=== PATIENT | female | born 1970 | race Caucasian/White ===

== ENCOUNTER 2018-01-14 09:33 | Emergency (ER) | payer OTHER ==
[~2018-01-14] VITALS: Ht 165.1 cm; Wt 72.6 kg
[2018-01-14] MEDS ORDERED: PEPCID20 MG (09:55)
[2018-01-14] MEDS ORDERED: ZOLOFT20 MG/1 ML (09:55)
[2018-01-14] MEDS ORDERED: OMEPRAZOLE20 M1 (09:55)
[2018-01-14] MEDS ORDERED: FOSAMAX70 MG (09:56)
== END 2018-01-14 11:26 | disposition home or self-care (01) ==
LOC: ER 09:33
DX: M54.89 Other dorsalgia (principal); M62.830 Muscle spasm of back

== ENCOUNTER 2020-05-06 11:02 | Emergency (ER) | payer OTHER ==
[~2020-05-06] VITALS: Ht 160 cm; Wt 70.8 kg
[~2020-05-06 11:02] MED LIST: FOSAMAX70 MG; OMEPRAZOLE20 M1; PEPCID20 MG; ZOLOFT20 MG/1 ML
== END 2020-05-06 14:07 | disposition home or self-care (01) ==
LOC: ER 11:02
DX: B34.9 Viral infection, unspecified (principal); Z03.818 Encounter for observation for suspected exposure to other biological agents ruled out; R53.81 Other malaise

== ENCOUNTER 2020-07-18 10:34 | Emergency (ER) | payer OTHER ==
[~2020-07-18] VITALS: Ht 165.1 cm; Wt 72.6 kg
== END 2020-07-18 21:47 | disposition home or self-care (01) ==
LOC: ER 10:34
DX: K52.9 Noninfective gastroenteritis and colitis, unspecified (principal)

== ENCOUNTER 2020-07-21 19:14 | Emergency (ER) | payer OTHER ==
[~2020-07-21] VITALS: Ht 165.1 cm; Wt 73.0 kg
[2020-07-21] MEDS ORDERED: BENTYL10 MG/1 ML (19:21)
[2020-07-21] MEDS ORDERED: DIPHENOXYLATE-1 EACH PO (23:00)
[2020-07-21] MEDS ORDERED: INTESTINEX680 M2 PO (23:00)
[2020-07-21] MEDS ORDERED: MEDROLPACK PO (23:00)
[2020-07-21] MEDS ORDERED: LEVSIN/SL0.125 MG SL (23:00)
[2020-07-21] MEDS ORDERED: PEPCID AC20 MG PO (23:00)
[2020-07-21] MEDS ORDERED: ONDANSETRON ODT4 MG SL (23:00)
== END 2020-07-21 23:47 | disposition home or self-care (01) ==
LOC: ER 19:14
DX: K51.80 Other ulcerative colitis without complications (principal)

== ENCOUNTER 2020-08-05 16:08 | Emergency (ER) | payer OTHER ==
[~2020-08-05] VITALS: Ht 165.1 cm; Wt 70.8 kg
[~2020-08-05 16:08] MED LIST changes: +BENTYL10 MG/1 ML; +DIPHENOXYLATE-1 EACH PO; +INTESTINEX680 M2 PO; +LEVSIN/SL0.125 MG SL; +MEDROLPACK PO; +ONDANSETRON ODT4 MG SL; +PEPCID AC20 MG PO
[2020-08-05] MEDS ORDERED: ABATINEX680 MG (16:18)
== END 2020-08-05 21:36 | disposition home or self-care (01) ==
LOC: ER 16:08
DX: K29.60 Other gastritis without bleeding (principal); N20.0 Calculus of kidney; Z03.818 Encounter for observation for suspected exposure to other biological agents ruled out

== ENCOUNTER 2023-02-10 18:18 | Emergency (ER) | payer OTHER ==
[~2023-02-10] VITALS: Ht 162.6 cm; Wt 74.8 kg
[~2023-02-10 18:18] MED LIST changes: +ABATINEX680 MG
[2023-02-10] MEDS ORDERED: CARAFATE1 GM PO (18:30)
[2023-02-10] MEDS ORDERED: PROBIOTIC1 EAC2 PO (18:31)
[2023-02-10] MEDS ORDERED: OMEPRAZOLE MAGN20 MG PO (18:31)
== END 2023-02-10 21:51 | disposition home or self-care (01) ==
LOC: ER 18:18
DX: B34.9 Viral infection, unspecified (principal); R53.81 Other malaise; Z20.822 Contact with and (suspected) exposure to COVID-19; Z88.6 Allergy status to analgesic agent

== ENCOUNTER 2023-12-30 01:18 | Emergency (ER) | payer OTHER ==
[~2023-12-30] VITALS: Ht 165.1 cm; Wt 72.6 kg
[~2023-12-30 01:18] MED LIST changes: +CARAFATE1 GM PO; +OMEPRAZOLE MAGN20 MG PO; +PROBIOTIC1 EAC2 PO
[2023-12-30] MEDS ORDERED: METOCLOPRAMIDE HCL 5 MG/ML VIAL IM STA (02:01)
[2023-12-30] MEDS ORDERED: MEPERIDINE HCL/PF 50 MG/ML VIAL IM STA (02:04)
[2023-12-30] MEDS ORDERED: PROMETHAZINE HCL 50 MG/ML AMPUL IM STA (02:05)
[2023-12-30 02:40] LABS: HEMATOCRIT 34.7 % (36.0-45.00); MEAN CELL VOLUME 91.3 fL (80.00-100.00); MEAN CORPUSCULAR HEMOGLOBIN 31.5 pg (27.00-32.0); MEAN CORPUSCULAR HGB CONC 34.5 g/dl (32.0-36.0); PLATELET COUNT 294 K/uL (150-450); RED CELL DISTRIBUTION WIDTH 13.8 % (11.5-14.5)
[2023-12-30 03:10] LABS: INR 0.94; PARTIAL THROMBOPLASTIN TIME 26.4 SECONDS (22.0-34.0); PROTHROMBIN TIME 9.9 SECONDS (9.0-11.5)
[2023-12-30 03:13] LABS: ALBUMIN 3.8 gm/dL (3.4-5.0); BILIRUBIN TOTAL 0.28 mg/dL (0.3-1.2); CALCIUM 9.4 mg/dL (8.5-10.1); CREATININE SERUM 0.69 mg/dL (0.55-1.02); GFR 89.34; GLOBULINA 3.8 G/DL (2.4-3.5); POTASSIUM 3.71 mEq/L (3.5-5.1); TOTAL PROTEIN 7.6 gm/dL (6.4-8.2)
== END 2023-12-30 05:41 | disposition home or self-care (01) ==
LOC: ER 01:18
DX: G44.009 Cluster headache syndrome, unspecified, not intractable (principal); Z88.8 Allergy status to other drugs, medicaments and biological substances

== ENCOUNTER 2024-01-07 12:44 | Emergency (ER) | payer OTHER ==
[~2024-01-07] VITALS: Ht 165.1 cm; Wt 72.6 kg
[2024-01-07] MEDS ORDERED: GUAIFENESIN/DEXTROMETHORPHAN 100 MG/5 ML ML PO ONE (16:00)
[2024-01-07 16:19] LABS: HEMATOCRIT 35.9 % (36.0-45.00); HEMOGLOBIN 12.4 g/dL (12.0-15.00); MEAN CELL VOLUME 89.8 fL (80.00-100.00); MEAN CORPUSCULAR HEMOGLOBIN 30.9 pg (27.00-32.0); MEAN CORPUSCULAR HGB CONC 34.4 g/dl (32.0-36.0); PLATELET COUNT 224 K/uL (150-450); RED CELL DISTRIBUTION WIDTH 14.4 % (11.5-14.5)
[2024-01-07] MEDS ORDERED: TUSSIN DM SYRU118 ML PO (18:23)
[2024-01-07] MEDS ORDERED: ZYRTEC10 MG PO (18:42)
== END 2024-01-07 21:46 | disposition home or self-care (01) ==
LOC: ER 12:44
PROVIDERS: Nurse Practitioner Family
DX: R10.13 Epigastric pain (principal); N39.0 Urinary tract infection, site not specified; Z88.0 Allergy status to penicillin; Z88.2 Allergy status to sulfonamides; Z20.822 Contact with and (suspected) exposure to COVID-19

== ENCOUNTER 2024-09-19 16:56 | Emergency (ER) | payer OTHER ==
[~2024-09-19] VITALS: Ht 165.1 cm; Wt 70.3 kg
[~2024-09-19 16:56] MED LIST changes: +PAXLOVID 300-11 EACH PO; +TUSNEL LIQUID178 ML PO; +TUSSIN DM SYRU118 ML PO; +ZYRTEC10 MG PO
[2024-09-19 19:50] LABS: HEMOGLOBIN 12.2 g/dL (12.0-15.00); MEAN CELL VOLUME 89.7 fL (80.00-100.00); MEAN CORPUSCULAR HEMOGLOBIN 30.4 pg (27.00-32.0); MEAN CORPUSCULAR HGB CONC 33.8 g/dl (32.0-36.0); PLATELET COUNT 332 K/uL (150-450); RED BLOOD COUNT 4.01 M/uL (4.00-6.00); RED CELL DISTRIBUTION WIDTH 13.7 % (11.5-14.5)
[2024-09-19] MEDS ORDERED: GILTUSS COUGH-118 M1 PO (23:06)
== END 2024-09-20 00:30 | disposition home or self-care (01) ==
LOC: ER 16:58
PROVIDERS: Preventive Medicine Public Health & General Preventive Medicine
DX: B34.9 Viral infection, unspecified (principal); Z20.822 Contact with and (suspected) exposure to COVID-19; Z88.6 Allergy status to analgesic agent; Z88.0 Allergy status to penicillin